=== PATIENT | male | born 1975 | race Caucasian/White ===

== ENCOUNTER 2020-03-01 18:44 | Emergency (ER) | payer SELFPAY | END 2020-03-01 19:15 | disposition home or self-care (01) | LOC: ERS 18:44 | DX: K04.7 Periapical abscess without sinus (principal); F17.210 Nicotine dependence, cigarettes, uncomplicated | CPT/HCPCS: 99283 ==

== ENCOUNTER 2020-03-02 07:42 | Emergency (ER) | payer SELFPAY ==
[2020-03-02] MEDS ORDERED: Ketorolac Tromethamine 30 MG/ML VIAL ONE (08:13)
[2020-03-02] MEDS ORDERED: Amoxicillin/Potassium Clav 875 MG TAB ONE (08:16)
== END 2020-03-02 08:30 | disposition home or self-care (01) ==
LOC: ERS 07:42
DX: K04.7 Periapical abscess without sinus (principal); F17.210 Nicotine dependence, cigarettes, uncomplicated
CPT/HCPCS: 96372; 99283; J1885

== ENCOUNTER 2020-08-02 07:27 | Emergency (ER) | payer SELFPAY ==
[2020-08-02] MEDS ORDERED: Penicillin V Potassium 250 MG TAB PO SCH (08:30)
== END 2020-08-02 08:43 | disposition short-term general hospital (02) ==
LOC: ERS 07:27
DX: K05.10 Chronic gingivitis, plaque induced (principal); K02.9 Dental caries, unspecified; K03.81 Cracked tooth; F17.210 Nicotine dependence, cigarettes, uncomplicated
CPT/HCPCS: 99282

== ENCOUNTER 2021-02-04 14:25 | Emergency (ER) | payer SELFPAY | END 2021-02-04 17:15 | disposition home or self-care (01) | LOC: ERS 14:25 | DX: M54.2 Cervicalgia (principal); G89.29 Other chronic pain; F17.210 Nicotine dependence, cigarettes, uncomplicated | CPT/HCPCS: 99283 ==